=== PATIENT | male | born 1995 | race Two or more races ===

== ENCOUNTER 2018-02-05 11:47 | Emergency (ER) | payer BC ==
[2018-02-05 11:59] VITALS: BP 139/78
[2018-02-05] MEDS ORDERED: LIDOCAINE 2% VISCOUS SOLN 20 ML UDCUP PO ONE (12:16)
[2018-02-05] MEDS ORDERED: IBUPROFEN 600 MG TABLET PO ONE (12:16)
[2018-02-05] MEDS ORDERED: ACETAMINOPHEN 325 MG TABLET PO ONE (12:16)
[2018-02-05] MEDS ORDERED: DEXAMETHASONE SOD PHOS INJ 10 MG/1 ML VIAL IM ONE (12:16)
--- NOTE | 2018-02-05 12:19 | ER Document Report ---
ED General - General Chief Complaint: Fever Stated Complaint: SORE THROAT/FEVER Time Seen by Provider: 02/05/18 12:06 Notes: 22-year-old male here with complaints of sore throat and congestion ongoing for the past 4 days. He was seen at urgent care yesterday and was prescribed Augmentin 875 twice daily and just started taking it yesterday. He has been using Tylenol for the fever but "ran out of the Tylenol". Fevers have been 101 Fahrenheit at home. He denies any known sick contacts. He is here today because he feels worse. He is still able to swallow his secretions without any issues. Although he does have pain with swallowing. TRAVEL OUTSIDE OF THE [place] IN LAST 30 DAYS: No - Related Data Allergies/Adverse Reactions: No Known Allergies Allergy (Verified 02/05/18 11:55) Past Medical History - Social History Smoking Status: Unknown if Ever Smoked Chew tobacco use (# tins/day): No Frequency of alcohol use: None Drug Abuse: None Family History: Reviewed & Not Pertinent Patient has suicidal ideation: No Patient has homicidal ideation: No Renal/ Medical History: Denies: Hx Peritoneal Dialysis - Immunizations Immunizations up to date: Yes Hx Pneumococcal Vaccination: 09/12/11 Review of Systems - Review of Systems Notes: See history of present illness for pertinent positive review of systems; otherwise all review of systems have been reviewed and are negative Physical Exam - Vital signs Vitals: Temp Pulse Resp BP Pulse Ox 103.2 F H 122 H 24 H 139/78 H 99 02/05/18 11:55 02/05/18 11:55 02/05/18 11:55 02/05/18 11:55 02/05/18 11:55 - Notes Notes: PHYSICAL EXAMINATION: GENERAL: Well-appearing and in no acute distress. HEAD: Atraumatic, normocephalic. EYES: Pupils equal round and reactive to light, extraocular movements intact, sclera anicteric, conjunctiva are normal. ENT: nares patent, oropharynx moderate erythema with tonsillar exudates but no swelling. Midline uvula. Widely patent airway. Moist mucous membranes. NECK: Normal range of motion, supple mild submandibular lymphadenopathy LUNGS: CTAB and equal. No wheezes rales or rhonchi. HEART: Tachycardic rate with regular rhythm without murmurs ABDOMEN: Soft, no tenderness. No facial grimacing/wincing upon palpation. No guarding, no rebound. EXTREMITIES: Normal range of motion, no pitting edema. No cyanosis. NEUROLOGICAL: Cranial nerves grossly intact. Normal sensory/motor exams. PSYCH: Normal mood, normal affect. SKIN: Warm, Dry, normal turgor, no rashes or lesions noted Course - Re-evaluation Re-evalutation: 02/05/18 12:19 MEDICAL DECISION MAKING: Concern for upper respiratory infection, most likely viral Rapid strep is negative, dexamethasone IM, Motrin/Tylenol Low clinical suspicion for deep neck space abscess/infection Gerard's BRAND MGR Instructed patient on fever control with Tylenol and/or (if applicable) Motrin Also discussed keeping hydrated with water or Gatorade/Pedialyte Instructed follow-up PCP next day or few Patient understands and agrees to the plan of care - Vital Signs Vital signs: Temp Pulse Resp BP Pulse Ox 103.2 F H 122 H 24 H 139/78 H 99 02/05/18 11:55 02/05/18 11:55 02/05/18 11:55 02/05/18 11:55 02/05/18 11:55 Discharge - Discharge Clinical Impression: Sore throat Condition: Good Disposition: HOME, SELF-CARE Additional Instructions: You were seen in the emergency department at [facility]. Finish the antibiotics and do not skip any doses. Use the prescribed medication as needed for pain. Continue using Tylenol and Motrin for fever. Please followup with your primary physician in the next few days for further management/ evaluation. Please return to the emergency department for worsening of symptoms or any symptom that you deem to be concerning or life-threatening. Thank you for allowing us to be part of your care. Prescriptions: Meloxicam 7.5 mg PO DAILYP PRN #7 tablet PRN Reason:
== END 2018-02-05 13:29 | disposition home or self-care (01) ==
LOC: ER 11:47
DX: R50.9 Fever, unspecified (principal); J02.9 Acute pharyngitis, unspecified
CPT/HCPCS: 99283; 96372; 87070; 87880; J3490; J1100

== ENCOUNTER 2018-02-07 18:10 | Emergency (ER) | payer BC ==
[2018-02-07 18:17] VITALS: BP 133/74
[2018-02-07] MEDS ORDERED: DEXAMETHASONE SOD PHOS INJ 10 MG/1 ML VIAL IM ONE (18:31)
[2018-02-07] MEDS ORDERED: KETOROLAC TROMETHAMINE INJ/PF 30 MG/1 ML SDV IM ONE (18:31)
--- NOTE | 2018-02-07 18:36 | ER Document Report ---
HPI - HPI Pain Level: 3 Notes: Patient is a 22-year-old male with no significant past medical history who presents to the ED complaining of continued sore throat since his visit 2 days ago. Patient was also seen by the urgent care a few days ago and was started on Augmentin. He did receive Decadron 2 days ago as well. Patient states that he continues to run low-grade temperatures and has been taking Tylenol for symptoms. He has not noticed any worsening swelling in his throat. He is still able to eat and drink, but does have a decreased p.o. intake. He is urinating normally and having normal bowel movements. His strep test has been negative 2 previously. No other concerns or complaints at this time. Denies any headache, neck pain, hoarseness, drooling, URI, chest pain, palpitations, syncope, cough, shortness of breath, wheeze, dyspnea, abdominal pain, nausea/ vomiting/diarrhea, urinary retention, dysuria, hematuria, or rash. - ROS Systems Reviewed and Negative: Yes All other systems reviewed and negative - CONSTITUTIONAL Constitutional: REPORTS: Fever - EENT EENT: REPORTS: Sore Throat Past Medical History - Social History Smoking Status: Never Smoker Chew tobacco use (# tins/day): No Frequency of alcohol use: None Drug Abuse: None Family History: Reviewed & Not Pertinent Patient has suicidal ideation: No Patient has homicidal ideation: No Renal/ Medical History: Denies: Hx Peritoneal Dialysis - Immunizations Immunizations up to date: Yes Hx Pneumococcal Vaccination: 09/12/11 Vertical Provider Document - CONSTITUTIONAL Agree With Documented VS: Yes Notes: PHYSICAL EXAMINATION: GENERAL: Well-appearing, well-nourished and in no acute distress. A&Ox4. Answers questions appropriately. Moves comfortably w/o notable distress HEAD: Atraumatic, normocephalic. EYES: Pupils equal round and reactive to light, extraocular movements intact, sclera anicteric, conjunctiva are normal. ENT: EAC clear b/l. TM's intact b/l without erythema, fluid, or perforation. Nares patent and with clear discharge. oropharynx erythema without exudates. 1 -2+ tonsilar hypertrophy with erythema and b/l exudate. No palatine shift. Uvula midline. No tongue protrusion. No drooling, hoarseness, or airway compromise. Moist mucous membranes. No sinus tenderness. NECK: Normal range of motion, supple without lymphadenopathy. No rigidity/ meningismus. LUNGS: Breath sounds clear to auscultation bilaterally and equal. No wheezes rales or rhonchi. No retractions HEART: Regular rate and rhythm without murmurs, rubs, gallops. ABDOMEN: Soft, nontender, nondistended abdomen. No guarding, no rebound. No masses appreciated. Normal bowel sounds present. No CVA tenderness bilaterally. No hepatosplenomegaly. NEUROLOGICAL: Normal speech, normal gait. Normal sensory, motor exams PSYCH: Normal mood, normal affect. SKIN: Warm, Dry, normal turgor, no rashes or lesions noted. - INFECTION CONTROL TRAVEL OUTSIDE OF THE [place] IN LAST 30 DAYS: No Course - Re-evaluation Re-evalutation: 02/07/18 19:28 Patient is an afebrile, well-hydrated, 22-year-old male who presents to the ED with an acute pharyngitis, suspect viral. Vitals are acceptable. PE is otherwise unremarkable. Rapid strep was negative with throat culture pending. I did order for a Monospot and CMP as well which was unremarkable for any acute pathology. Patient is already on Augmentin. Decadron and Toradol given IM today as well. He has no significant tachycardia, tachypnea, or hypoxia. He is able to tolerate p.o. without any difficulties otherwise. No other labs or imaging warranted at this time based on H&P. Low suspicion for any meningitis, sepsis, peritonsillar/pharyngeal abscess, respiratory compromise, Gerard's, or other emergent systemic condition at this time. Patient is aware this condition can change from initial presentation and he needs to monitor symptoms closely. Conservative measures otherwise for symptoms. rx for magic mouthwash. Recheck with your PCM in 2-3 days. Consider consult ENT. Return to the ED with any worsening/concerning symptoms otherwise as reviewed in discharge. Patient is in agreement. - Vital Signs Vital signs: Temp Pulse Resp BP Pulse Ox 99.2 F 107 H 18 133/74 H 97 02/07/18 18:15 02/07/18 18:15 02/07/18 18:15 02/07/18 18:15 02/07/18 18:15 - Laboratory Result Diagrams: 02/07/18 18:35 Discharge - Discharge Clinical Impression: Acute pharyngitis Qualifiers: Pharyngitis/tonsillitis etiology: unspecified etiology Qualified Code(s): J02.9 - Acute pharyngitis, unspecified Condition: Stable Disposition: HOME, SELF-CARE Instructions: Sore Throat ([facility]) Additional Instructions: Maintain adequate fluid intake Take meds as directed Salt water gargles, throat sprays, mouthwash rinse, peroxide gargles tylenol/ibuprofen as needed over the counter cold medication as needed for symptoms F/u: with your PCM in 2-3 days for a recheck Consider consult with ENT for ongoing/worsening symptoms Return to the ED with any fever, worsening pain, chest pain, neck pain/stiffness , shortness of breath, cough, drooling, trouble swallowing/breathing, abdominal pain, n/v/d, rash, or worsening/concerning symptoms otherwise. Prescriptions: Nystatin/Dexameth/Diphen [Magic Mouthwash ([facility] Formula) Susp] 5 ml PO QID #120 ml Forms: Elevated Blood Pressure Referrals: ANEESH BRIZUELA DO [ASSOCIATE] - Follow up as needed
[2018-02-07 19:08] LABS: ALANINE AMINOTRANSFERASE 26 U/L (21-72); ALBUMIN 3.8 g/dL (3.5-5.0); ALKALINE PHOSPHATASE 46 U/L (38-126); ANION GAP 14 (5-19); ASPARTATE AMINO TRANSFERASE 20 U/L (17-59); BILIRUBIN,DIRECT 0.3 mg/dL (0.0-0.4); BILIRUBIN,TOTAL 0.3 mg/dL (0.2-1.3); BLOOD UREA NITROGEN 15 mg/dL (7-20); CALCIUM 8.9 mg/dL (8.4-10.2); CARBON DIOXIDE 25 mmol/L (22-30); CHLORIDE 101 mmol/L (98-107); GLUCOSE 122 mg/dL (75-110); POTASSIUM 3.7 mmol/L (3.6-5.0); SODIUM 140.3 mmol/L (137-145); TOTAL PROTEIN 6.9 g/dL (6.3-8.2)
== END 2018-02-07 19:34 | disposition home or self-care (01) ==
LOC: ER 18:10
DX: J02.9 Acute pharyngitis, unspecified (principal); J35.1 Hypertrophy of tonsils; R50.9 Fever, unspecified
CPT/HCPCS: 99283; 96372; 36415; 87070; 87880; 87077; 86308; 80053; J1885; J1100

== ENCOUNTER 2018-02-22 15:12 | Emergency (ER) | payer BC ==
[2018-02-22 15:27] VITALS: BP 133/77
[2018-02-22] MEDS ORDERED: PREDNISONE 20 MG TABLET PO ONE (15:49)
[2018-02-22] MEDS ORDERED: ALBUTEROL SULFATE 0.083% NEB 2.5 MG/3 ML AMPUL NEB ONE (15:49)
--- NOTE | 2018-02-22 15:50 | ER Document Report ---
ED Respiratory Problem - General Chief Complaint: Cough Stated Complaint: COUGH/TROUBLE BREATHING Time Seen by Provider: 02/22/18 15:40 Mode of Arrival: Ambulatory Information source: Patient Notes: 22-year-old male presents to ED for complaint of cough congestion and sore throat. He states he has had a cough for over a month states his sore throat is better at this time and no longer has a sore throat. States he continues to cough and have shortness of breath. States he has not been to a primary doctor in a long time he was seen here a month ago and recommended that he follow-up with his primary doctor but he states he has not done this that yet. TRAVEL OUTSIDE OF THE [place] IN LAST 30 DAYS: No - HPI Patient complains to provider of: Cough, Short of breath Onset: Other - Month Duration: Continuous Initiating Event: URI Quality of pain: Achy Context: denies: Smoker Cough: Nonproductive Sputum amount: None Associated symptoms: Congestion, Cough, PND, Runny nose, Short of breath Similar symptoms previously: Yes Recently seen / treated by doctor: Yes - Related Data Allergies/Adverse Reactions: No Known Allergies Allergy (Verified 02/05/18 11:55) Past Medical History - General Information source: Patient - Social History Smoking Status: Never Smoker Cigarette use (# per day): No Chew tobacco use (# tins/day): No Smoking Education Provided: No Frequency of alcohol use: None Drug Abuse: None Lives with: Family Family History: Reviewed & Not Pertinent Patient has suicidal ideation: No Patient has homicidal ideation: No Pulmonary Medical History: Reports: None EENT Medical History: Reports: None Neurological Medical History: Reports: None Endocrine Medical History: Reports: None Malignancy Medical History: Reports None GI Medical History: Reports: None Musculoskeltal Medical History: Reports None Skin Medical History: Reports None Psychiatric Medical History: Reports: None Traumatic Medical History: Reports: None Infectious Medical History: Reports: None Surgical Hx: Negative Past Surgical History: Reports: None - Immunizations Immunizations up to date: Yes Hx Pneumococcal Vaccination: 09/12/11 Review of Systems - Review of Systems Constitutional: Recent illness EENT: Nose congestion, Nose discharge, Sinus discharge, Throat pain - He states the sore throat is better now Cardiovascular: No symptoms reported Respiratory: Cough, Short of breath Gastrointestinal: No symptoms reported Genitourinary: No symptoms reported Male Genitourinary: No symptoms reported Musculoskeletal: No symptoms reported Skin: No symptoms reported Hematologic/Lymphatic: No symptoms reported Neurological/Psychological: No symptoms reported -: Yes All other systems reviewed and negative Physical Exam - Vital signs Vitals: Temp Pulse Resp BP Pulse Ox 99.1 F 104 H 20 133/77 H 99 02/22/18 15:26 02/22/18 15:26 02/22/18 15:26 02/22/18 15:26 02/22/18 15:26 Interpretation: Normal - General General appearance: Appears well, Alert - HEENT Head: Normocephalic, Atraumatic Eyes: Normal Pupils: PERRL Ears: Normal External canal: Normal Tympanic membrane: Normal Sinus: Normal Nasal: Swelling, Clear rhinorrhea Mouth/Lips: Normal Mucous membranes: Normal Pharynx: Normal Neck: Normal - Respiratory Respiratory status: No respiratory distress Chest status: Nontender Breath sounds: Nonproductive cough Chest palpation: Normal - Cardiovascular Rhythm: Regular Heart sounds: Normal auscultation Murmur: No - Abdominal Inspection: Normal Distension: No distension Bowel sounds: Normal Tenderness: Nontender Organomegaly: No organomegaly - Back Back: Normal, Nontender - Extremities General upper extremity: Normal inspection, Nontender, Normal color, Normal ROM , Normal temperature General lower extremity: Normal inspection, Nontender, Normal color, Normal ROM , Normal temperature, Normal weight bearing. No: Rachel's sign - Neurological Neuro grossly intact: Yes Cognition: Normal Orientation: AAOx4 Randolph Coma Scale Eye Opening: Spontaneous Randolph Coma Scale Verbal: Oriented Randolph Coma Scale Motor: Obeys Commands Randolph Coma Scale Total: 15 Speech: Normal Motor strength normal: LUE, RUE, LLE, RLE Sensory: Normal - Psychological Associated symptoms: Normal affect, Normal mood - Skin Skin Temperature: Warm Skin Moisture: Dry Skin Color: Normal Course - Re-evaluation Re-evalutation: 02/22/18 20:54 X-ray discussed with patient and written report given to patient to follow-up with his primary doctor. Patient was treated with a albuterol neb and steroids in the emergency room he states it did help a little bit but not a lot. He was discharged home with an albuterol inhaler and steroids as well as Tessalon Perles. Patient to follow-up with his primary doctor. I asked patient please to follow-up with primary doctor. - Vital Signs Vital signs: Temp Pulse Resp BP Pulse Ox 99.1 F 104 H 20 133/77 H 99 02/22/18 15:26 02/22/18 15:26 02/22/18 15:26 02/22/18 15:26 02/22/18 15:26 - Diagnostic Test Radiology reviewed: Image reviewed, Reports reviewed Discharge - Discharge Clinical Impression: URI (upper respiratory infection) Qualifiers: URI type: unspecified URI Qualified Code(s): J06.9 - Acute upper respiratory infection, unspecified HTN (hypertension) Qualifiers: Hypertension type: unspecified Qualified Code(s): I10 - Essential (primary) hypertension Condition: Stable Disposition: HOME, SELF-CARE Instructions: Family Physicians / Practices Additional Instructions: UPPER RESPIRATORY ILLNESS: You have a viral infection of the respiratory passages -- a "cold." This common infection causes nasal congestion, drainage, and often sore throat and cough. It is highly contagious. The disease usually lasts about 10 to 14 days. There is no "cure" for the viral infection -- it must run its course. If there is a complication, such as bacterial infection in the nose, sinuses, middle ear, or bronchial tubes, antibiotics may be required. The antibiotics won't affect the virus. Drink plenty of fluids. A humidifier may help. An expectorant medication or decongestant may make you more comfortable. Use acetaminophen or ibuprofen for fever or aches. See the doctor if fever persists over two days, if there is any significant worsening of your symptoms, or if you simply fail to improve as expected. DECONGESTANT MEDICATION: A decongestant medicine has been suggested. Often this medicine is combined in the same tablet with an antihistamine or expectorant. This type of medicine is helpful in treating a bad cold or sinus condition, as well as in treatment of the nasal congestion of hay fever. It is not of much benefit for lung infections. Decongestant medicines are related to stimulants. They can cause an increase in blood pressure and heart rate. Persons with heart disease and high blood pressure should not take decongestants without discussing this with the physician. If you develop palpitations, chest pain, headache, or tremors, stop the medicine and consult your physician. COUGH-SUPPRESSANT & EXPECTORANT MEDICATION: You are to use a cough medication as needed for relief of symptoms. This medicine is a combination of an expectorant (to make the mucous thinner and more easily "coughed up") and a cough suppressant (to reduce the frequency of coughing). The cough-suppressant medicine is related to narcotics. You may experience mild nausea and sleepiness. Some patients who are very sensitive to narcotics may have stomach pain from this medicine. Taking the medicine with food reduces these side effects. Do not drive or work with machinery until you know how this medicine affects you. The expectorant should have no side effects. Iodine-containing expectorants (such as organidin) should not be taken by persons with active thyroid disease unless approved by your doctor. Call the doctor if you develop shortness of breath, hives, rash, itching, lightheadedness, or severe nausea and vomiting. INHALED BRONCHODILATORS: You have received a treatment of and/or prescription for an inhaled bronchodilator -- a medication which stimulates the airways in the lung to dilate. This improves the flow of air in asthma, bronchitis, and emphysema. These medicines have some similarity to adrenaline, and can cause similar side effects: shakiness, racing heart, and a sense of nervousness. These side effects decrease with time. Contact your doctor if these side effects are severe. Do not over-use the medicine. Too-frequent use of the inhaler may make it ineffective. Call your doctor if the inhaler is not controlling your symptoms at the prescribed doses. STEROID MEDICATION: You have been given an injection of or oral medicine of the cortisone/ steroid class. This medication is used to control inflammation or allergy. Michael t is usually only given for a short period of time, until the acute process subsides. There are usually no side effects from short-term use of cortisone-like medications. Some persons feel an increased sense of well-being and are not sleepy at bedtime. Long-term use of cortisone medications is best avoided, unless required for a severe condition. If your condition does not remit, or relapses after the course of corticosteroid medication, you should consult your physician. USE OF ACETAMINOPHEN (Tylenol): Acetaminophen may be taken for pain relief or fever control. It's much safer than aspirin, offering a wider range of "safe" dosages. It is safe during . Some brand names are Tylenol, Panadol, Datril, Anacin 3, Tempra, and Liquiprin. Acetaminophen can be repeated every four hours. The following are maximum recommended dosages: >89 pounds or adults 650 mg to 900 mg Acetaminophen can be repeated every four hours. Maximum dose not to exceed 4000 mg a day. SMOKING: If you smoke, you should stop smoking. The tar and chemicals in cigarette smoke are harmful. Smoking has been shown to cause: emphysema chronic bronchitis lung cancer mouth and throat cancer stomach and pancreas cancer premature aging defects In addition, smoking increases ear and lung infections in children of smokers. FOLLOW-UP CARE: If you have been referred to a physician for follow-up care, call the physician s office for an appointment as you were instructed or within the next two days. If you experience worsening or a significant change in your symptoms, notify the physician immediately or return to the Emergency Department at any time for re-evaluation. Prescriptions: Benzonatate [Tessalon Perle 100 mg Capsule] 100 mg PO Q8HP PRN #14 cap PRN Reason: Albuterol Sulfate [Proair HFA Inhalation Aerosol 8.5 gm MDI] 2 puff IH Q4H PRN # 1 mdi PRN Reason: Prednisone [Deltasone 20 mg Tablet] 2 tab PO DAILY 3 Days tablet Forms: Elevated Blood Pressure Referrals: JOY LEAVITT MD [Primary Care Provider] - Follow up as needed
--- NOTE | 2018-02-22 16:24 | RADIOLOGY REPORT (SQ) ---
EXAM DESCRIPTION: CHEST 2 VIEWS COMPLETED DATE/TIME: 02/22/2018 4:02 pm REASON FOR STUDY: cough COMPARISON: None. EXAM PARAMETERS: NUMBER OF VIEWS: two views TECHNIQUE: Digital Frontal and Lateral radiographic views of the chest acquired. RADIATION DOSE: NA LIMITATIONS: none FINDINGS: LUNGS AND PLEURA: No opacities, masses or pneumothorax. No pleural effusion. MEDIASTINUM AND HILAR STRUCTURES: No masses or contour abnormalities. HEART AND VASCULAR STRUCTURES: Heart normal size. No evidence for failure. BONES: No acute findings. HARDWARE: None in the chest. OTHER: No other significant finding. IMPRESSION: NO ACUTE RADIOGRAPHIC FINDING IN THE CHEST. TECHNICAL DOCUMENTATION: JOB ID: [id number] [employer]- All Rights Reserved Reading location - IP/workstation name: [facility]
== END 2018-02-22 16:53 | disposition home or self-care (01) ==
LOC: ER 15:12
DX: J06.9 Acute upper respiratory infection, unspecified (principal); I10 Essential (primary) hypertension; R05 Cough; R06.02 Shortness of breath; R09.82 Postnasal drip; R09.81 Nasal congestion; J34.89 Other specified disorders of nose and nasal sinuses
CPT/HCPCS: 99283; 71046; J7512